=== PATIENT | female | born 1940 | race Caucasian/White ===

== ENCOUNTER 2016-09-23 12:46 | Day surgery (SDC) | payer MEDICARE ==
[~2016-09-23 12:46] MED LIST: ALPH0.1S EACH EYE; ASCO500T PO; BACTOIN EACH NARE; CALC1CHW30 CHEW; CEFTINJ2 IV; CETI10CA3 PO; CHOL100025 CHEW; CLAR10CA3 PO; CO Q100C9 PO; CYAN1000P IM; ESTR0.62 VAGINAL; FOLI400T PO; LUMI0.01 EACH EYE; LUMI0.01 RIGHT EYE; MODU550 PO; MOME17I EACH NARE; MULT-65 PO; OMEGCAP19 PO
[2016-09-23 13:02] VITALS: BP 151/72; PULSE 83; RESP 20; TEMP 98.5; O2SAT 99
[2016-09-23 15:02] VITALS: BP 140/65; PULSE 71; RESP 18; TEMP 98.5; O2SAT 99
--- NOTE | 2016-09-23 15:46 | RADRPT ---
EXAM DATE/TIME: 09/23/2016 14:50 [place] COMPARISON: No previous studies available for comparison. INDICATIONS : recurrent infection. MEDICAL HISTORY : 1. Cataracts 2. migraines 3. TIA 4. GERD 5. Osteoporosis 6. Fibromyalgia 7. A fib 8. CPAP SURGICAL HISTORY : 1. Laminectomy 2. Nasal surgery ENCOUNTER: Initial ACUITY: 3 months PAIN SCORE: 1/10 LOCATION: lower back FLUORO TIME: 0.2 minutes IMAGE SERIES: 1 ACCESS: Right basilic vein DEVICE(S): 1.) 4 [place] single lumen 35 cm Xcela Power PICC PROCEDURE : 1. Ultrasound guidance for venous catheterization. 2. Fluoroscopic guidance. 3. Ultrasound & fluoroscopic guided central venous Power PICC line placement. The risks, benefits and alternatives to the procedure were explained and verbal and written consent w as obtained. The site was prepped in sterile fashion. Full sterile technique was used, including ca p, mask, sterile gloves and gown and a large sterile sheet. Hand hygiene and 2% chlorhexidine prep w as utilized per protocol for cutaneous antisepsis with appropriate dry time for site. The skin and s ubcutaneous tissues were infiltrated with local anesthetic solution. Under direct ultrasound guidance, a suitable vein was accessed and a measuring guidewire was introduc ed and positioned in the central venous system. The ultrasound images depicting access guidance were saved and stored to PACS for permanent record. A Power Injectable PICC line was cut to prescribed length and introduced, positioned with tip at the cavoatrial junction level. The line was flushed and secured per protocol. CONCLUSION: 1. Uncomplicated central venous Power PICC line placement. 2. The PICC line can be used immediately. Slade Jules MD on September 23, 2016 at 15:44 Board Certified Radiologist. This report was verified electronically.
[2016-09-26] MEDS ORDERED: TYLE325T PO (15:22)
== END 2016-09-23 14:30 | disposition home or self-care (01) ==
LOC: HROP 12:46 → HRIP 12:46 → HROP 14:30
PROVIDERS: ATTEND Specialist
DX: L03.211 Cellulitis of face (principal); K21.9 Gastro-esophageal reflux disease without esophagitis; M81.0 Age-related osteoporosis without current pathological fracture; M79.7 Fibromyalgia; Z86.73 Personal history of transient ischemic attack (TIA), and cerebral infarction without residual deficits
CPT/HCPCS: 36569; 76937; 77001; C1751; J1642

== ENCOUNTER → 2017-07-14 | Outpatient (CLI) | payer MEDICARE ==
[~2017-07-14] MED LIST changes: +ADVI200T17 PO; +AK-T0.3S LEFT EYE; -ALPH0.1S EACH EYE; +HEPA100I8 IV; +MELA1TAB18 PO; -MOME17I EACH NARE; +NSFLUSH5 IV FLUSH; -OMEGCAP19 PO; +TYLE325T PO
[2017-07-14 10:44] LABS: BILIRUBIN, URINE NEG (NEG); BLOOD, URINE SMALL (NEG); GLUCOSE,URINE NEG (NEG); KETONE, URINE NEG (NEG); NITRITE,URINE NEG (NEG); SQUAMOUS EPITHELIAL CELL URINE 1 /hpf (0-5); URINE COLOR LIGHT-YELLOW (YELLW/STRAW); URINE LEUKOCYTE ESTERASE NEG (NEG)
== END ==
LOC: HLAB 10:10
PROVIDERS: ATTEND Allergy & Immunology
DX: N39.0 Urinary tract infection, site not specified (principal)
CPT/HCPCS: 81001